=== PATIENT | male | born 1960 | race Caucasian/White ===

== ENCOUNTER 2020-04-28 11:04 | Outpatient (CLI) | payer MEDICARE, SELFPAY ==
--- NOTE | ~2020-04-28 | CT_ITS ---
EXAMINATION: CT lung screening DATE: 04/28/2020 11:36 INDICATION: Personal history of tobacco dependence, prior smoker with 31 pack year history TECHNIQUE: Computed tomography (CT) of the chest was performed without intravenous contrast. The dose -length product (DLP) was 339.53 mGy-cm. Automated exposure control and iterative reconstruction tech [employer] were employed. COMPARISON: 10/30/2018 FINDINGS: No suspicious pulmonary nodule is identified. Calcified pulmonary nodules and calcified fred ateral hilar and right paratracheal lymph nodes are consistent with old granulomatous disease. There is no pleural effusion or pneumothorax. No pathologically enlarged thoracic lymph nodes are identifie d. The heart size is normal. There is mild thoracic spondylosis. IMPRESSION: 1. Lung-RADS category 1: Negative. Continue annual screening with noncontrast low-dose chest CT in 12 months. Reviewed, dictated and finalized at location A. IMPRESSION: 1. Lung-RADS category 1: Negative. Continue annual screening with noncontrast l ow-dose chest CT in 12 months.
== END 2020-04-28 11:05 | disposition home or self-care (01) ==
PROVIDERS: PCP Emergency Medicine; Visit Provider Emergency Medicine
DX: Z12.2 Encounter for screening for malignant neoplasm of respiratory organs (principal); Z87.891 Personal history of nicotine dependence
CPT/HCPCS: G0297

== ENCOUNTER → 2020-09-13 08:23 | Outpatient (REF) | payer MEDICARE, SELFPAY | LOC: ANHLAB 08:23 | PROVIDERS: PCP Emergency Medicine; Visit Provider Nurse Practitioner | DX: L57.0 Actinic keratosis (principal); D22.5 Melanocytic nevi of trunk | CPT/HCPCS: 88305; 88342 ==

== ENCOUNTER → 2020-10-31 16:28 | Outpatient (REF) | payer MEDICARE, SELFPAY | LOC: ANHLAB 16:28 | PROVIDERS: PCP Emergency Medicine; Visit Provider Nurse Practitioner | DX: D49.2 Neoplasm of unspecified behavior of bone, soft tissue, and skin (principal) | CPT/HCPCS: 88305 ==

== ENCOUNTER 2021-01-28 11:41 | Emergency (ER) | payer MEDICARE, SELFPAY ==
--- NOTE | 2021-01-28 11:56 | ED.URI ---
HPI - URI/Sore Throat General Chief Complaint: Upper Respiratory Infection Stated Complaint: sore throat Time Seen by Provider: 01/28/21 11:56 Source: patient and RN notes reviewed Mode of arrival: ambulatory Limitations: no limitations History of Present Illness HPI Narrative: 60 yo female presents to the [facility] with C/O a sore throat that started when he woke up this morning. Denies any sick contacts. No fevers, cough, chest pain, abdominal pain, nausea, vomiting or diarrhea. States the only thing he has is a runny nose. Related Data Home Medications Medication Instructions Recorded Confirmed atorvastatin 20 mg tablet mg PO 12/17/19 fenofibrate 160 mg tablet mg PO 12/17/19 irbesartan 300 tablet PO 12/17/19 mg-hydrochlorothiazide 12.5 mg tablet levothyroxine 50 mcg tablet mcg PO 12/17/19 aspirin 81 mg tablet,delayed 81 mg PO DAILY 03/23/20 release hydroxyurea 500 mg capsule 500 mg PO DAILY 03/23/20 metoprolol succinate 200 mg 200 mg PO DAILY 03/23/20 tablet,extended release 24 hr multivitamin 1 tablet PO DAILY 03/23/20 Allergies Allergy/AdvReac Type Severity Reaction Status Date / Time No Known Allergies Allergy Unknown Verified 11/15/20 07:59 Review of Systems Review of Systems: Narrative: CONSTITUTIONAL: Denies fever, chills, or sweats. EYES: Denies visual changes, redness, or discharge. ENT: Reports rhinorrhea and sore throat but denies congestion or otalgia. CARDIOVASCULAR: Denies chest pain, palpitations, or edema. RESPIRATORY: Denies cough or dyspnea. GASTROINTESTINAL: Denies abdominal pain, nausea, vomiting, or diarrhea. MUSCULOSKELETAL: Denies back pain, joint pain, or myalgia. NEUROLOGIC: Denies headache, numbness, or weakness. PSYCHIATRIC: Denies anxiety or depression. All other systems reviewed are negative, except as documented in HPI. [facility] Past Medical History Medical History (Updated 01/28/21 @ 18:32 by Jessica Aceves) High cholesterol Hypertension Thyroid disease Social History Social History Smoking status: Smoker, status unknown Alcohol intake: current Comments At the time of my signature, I reviewed and agree with the nursing past medical, surgical, social, and family history. There is no relevant family history pertinent to the patient complaint. Exam Narrative: Exam Narrative: GENERAL: This is a well-nourished, well-developed patient, in no apparent distress. HEAD: normocephalic, atraumatic. EYES: PERRL. Sclera clear/white. Vision is grossly intact. EARS: External ears normal, auditory canals clear and without drainage, TMs normal without perforation. Hearing grossly intact. NOSE: External nose normal with clear nasal discharge, nares without redness. +rhinorrhea. THROAT: Mucous membranes moist, posterior pharynx thick post nasal drip noted. NECK: Neck supple, non-tender without lymphadenopathy, masses or thyromegaly. CARDIOVASCULAR: Regular rate and rhythm without murmurs, gallops, or rubs. RESPIRATORY: Clear to auscultation. Breath sounds equal bilaterally. No wheezes, rales, or rhonchi. GASTROINTESTINAL: Abdomen soft, non-tender. SKIN: warm, intact with no suspicious lesions or rash, good texture and turgor. NEURO: awake, alert, and oriented to person, place and time. There were no obvious focal neurologic abnormalities. EXTREMITIES: No clubbing, cyanosis, or edema. No joint tenderness, effusion, or edema noted. Course Vital Signs Vital signs: Vital Signs Temperature 97.8 F 01/28/21 12:02 Pulse Rate 69 01/28/21 12:02 Respiratory Rate 16 01/28/21 12:02 Blood Pressure 145/84 H 01/28/21 12:02 Pulse Oximetry 99 01/28/21 12:02 Temperature 97.8 F 01/28/21 12:02 Pulse Rate 69 01/28/21 12:02 Respiratory Rate 16 01/28/21 12:02 Blood Pressure 145/84 H 01/28/21 12:02 Pulse Oximetry 99 01/28/21 12:02 Reviewed. Patient to follow-up with primary care provider for ev
[2021-01-28 12:02] VITALS: BP 145/84; PULSE 69; RESP 16; TEMP 36.6; O2SAT 99
== END 2021-01-28 12:15 | disposition home or self-care (01) ==
PROVIDERS: Emergency Provider Nurse Practitioner; PCP Emergency Medicine
DX: J30.9 Allergic rhinitis, unspecified (principal); R09.82 Postnasal drip; E78.00 Pure hypercholesterolemia, unspecified; I10 Essential (primary) hypertension; E07.9 Disorder of thyroid, unspecified
CPT/HCPCS: 99213; G0463

== ENCOUNTER 2021-09-15 08:59 | Outpatient (CLI) | payer MEDICARE, SELFPAY ==
--- NOTE | ~2021-09-15 | US_ITS ---
EXAMINATION: US scrotum doppler EXAM DATE: 09/15/2021 09:44 INDICATION: Testicular pain one month. TECHNIQUE: Multiple grayscale and Doppler images of the testicles and scrotum were obtained bilateral ly. There is no prior study for comparison. FINDINGS: Notation was made by technologist that the testicles were retracted toward the base of peni s at time of imaging. Right testicle measures 3.9 x 2.1 x 2.2 cm and is morphologically normal. Low resistance Doppler chet w confirmed. The epididymis is unremarkable. There is no hydrocele or varicocele. Left testicle measures 3.1 x 2.6 x 2.1 cm and is morphologically normal. Low resistance Doppler flow confirmed. The epididymis is unremarkable. There is no hydrocele or varicocele. IMPRESSION: High riding, but otherwise sonographically normal testicles. Reviewed, dictated and finalized at location B.
== END 2021-09-15 09:00 | disposition home or self-care (01) ==
LOC: ANHIMG 09:04
PROVIDERS: PCP Family Medicine; Visit Provider Physician Assistant
DX: N50.819 Testicular pain, unspecified (principal)
CPT/HCPCS: 76870; 93976

== ENCOUNTER 2022-01-24 12:05 | Outpatient (CLI) | payer MEDICARE, SELFPAY ==
--- NOTE | 2022-01-24 | ECG_ITS ---
Measurements Intervals Adams Rate: 57 P: 63 ND: 159 QRS: 31 QRSD: 94 T: 48 QT: 394 QTc: 386 Interpretive Statements SINUS BRADYCARDIA BORDERLINE ECG Electronically Signed On 01-24-2022 13:59:26 PHOTO MANAGER by Miguel Zamudio D.O.
== END 2022-01-24 12:06 | disposition home or self-care (01) ==
LOC: ANHLAB 12:07 → ANHCARD 12:08
PROVIDERS: PCP Physician Assistant; Visit Provider Physician Assistant
DX: R00.2 Palpitations (principal)
CPT/HCPCS: 93005

== ENCOUNTER → 2022-03-26 09:27 | Outpatient (REF) | payer MEDICARE, SELFPAY | LOC: ANHLAB 09:27 | PROVIDERS: PCP Physician Assistant; Visit Provider Nurse Practitioner | DX: D22.5 Melanocytic nevi of trunk (principal) | CPT/HCPCS: 88305 ==

== ENCOUNTER 2022-04-17 08:58 | Outpatient (CLI) | payer MEDICARE, SELFPAY ==
--- NOTE | ~2022-04-17 | CT_ITS ---
EXAMINATION: CT lung screening DATE: 04/17/2022 09:22 INDICATION: Personal history of tobacco dependence TECHNIQUE: Computed tomography (CT) of the chest was performed without intravenous contrast. The dose -length product was 406.60 mGy-cm. Automated exposure control and iterative reconstruction technique were employed. COMPARISON: CT dated 04/28/2020 FINDINGS: Heart size is normal. There are calcified lymph nodes of the mediastinum. There are gallsto aniceto. No significant pleural or pericardial effusion. No thoracic lymphadenopathy. There is atheroscle rosis of the aorta and coronary arteries. No pneumothorax. No endobronchial lesions. There is minimal scarring/atelectasis of the lung bases. No pneumothorax. No endobronchial lesions. No suspicious pul monary nodules or masses. IMPRESSION: 1. Lung-RADS category 1: Negative. Continue annual screening with noncontrast low-dose chest CT in 12 months. Reviewed, dictated and finalized at location A. IMPRESSION: 1. Lung-RADS category 1: Negative. Continue annual screening with noncontrast l ow-dose chest CT in 12 months.
== END 2022-04-17 08:59 | disposition home or self-care (01) ==
PROVIDERS: PCP Physician Assistant; Visit Provider Physician Assistant
DX: Z12.2 Encounter for screening for malignant neoplasm of respiratory organs (principal); Z87.891 Personal history of nicotine dependence
CPT/HCPCS: 71271

== ENCOUNTER 2025-10-05 13:13 | Outpatient (CLI) | payer MEDICARE, SELFPAY ==
--- NOTE | ~2025-10-05 | US_ITS ---
EXAMINATION: US soft tissue chest, 10/05/2025 13:39 DIRECTOR OF CLINICAL SERVICES HISTORY: Localized swelling, mass and lump, trunk Comparison: None Technique: Whitehead-scale and color Doppler images were obtained. Findings: Correlating with the palpable area there is no abnormal mass or mass effect identified, there is no abnormal flow IMPRESSION: Unremarkable exam Reviewed, dictated and finalized at location P. CTOR OF CLINICAL SERVICES IMPRESSION: Unremarkable exam
== END 2025-10-05 13:14 | disposition home or self-care (01) ==
PROVIDERS: PCP Nurse Practitioner Family
DX: R22.2 Localized swelling, mass and lump, trunk (principal)
CPT/HCPCS: 76604